=== PATIENT | female | born 1990 | race Caucasian/White ===

== ENCOUNTER 2016-11-14 14:20 | Emergency (ER) | payer MEDICAID, OTHER ==
[~2016-11-14] VITALS: Ht 175.3 cm; Wt 98.0 kg
[2016-11-14 14:22] VITALS: BP 121/82; PULSE 107; RESP 15; TEMP 98.3; O2SAT 97
[2016-11-14] MEDS ORDERED: sleeping med (15:15)
[2016-11-14] MEDS ORDERED: SERT-132 PO (15:15)
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
[2016-11-14] MEDS ORDERED: ORPHENADRINE INJ 60 MG/2 ML AMP IM ONE (16:30)
[2016-11-14] MEDS ORDERED: KETOROLAC TROMETHAMINE 60 MG/2 ML (IM) VIAL IM ONE (16:30)
[2016-11-14] MEDS ORDERED: TETANUS/DIPHTHERIA TOXOID ADULT 0.5 ML VIAL IM ONE (16:30)
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
[2016-11-14] MEDS ORDERED: ROBA750T PO (17:39)
[2016-11-14] MEDS ORDERED: DICL50TA PO (17:39)
== END 2016-11-14 18:15 | disposition home or self-care (01) ==
LOC: NEPB 14:20
DX: S16.1XXA Strain of muscle, fascia and tendon at neck level, initial encounter (principal); M79.601 Pain in right arm; M54.5 Low back pain; M79.672 Pain in left foot; M79.642 Pain in left hand; T14.8 Other injury of unspecified body region; F17.210 Nicotine dependence, cigarettes, uncomplicated; V49.49XA Driver injured in collision with other motor vehicles in traffic accident, initial encounter; Y92.008 Other place in unspecified non-institutional (private) residence as the place of occurrence of the external cause; Z23 Encounter for immunization
CPT/HCPCS: 72125; 73060; 73130; 73630; 90471; 90714; 96372; 99284; J1885; J2360; L0150

== ENCOUNTER 2017-01-24 13:35 | Emergency (ER) | payer MEDICAID, OTHER ==
[~2017-01-24] VITALS: Ht 175.3 cm; Wt 98.1 kg
[~2017-01-24 13:35] MED LIST: DICL50TA PO; ROBA750T PO; SERT-132 PO; sleeping med
[2017-01-24 13:42] VITALS: BP 118/82; PULSE 93; RESP 16; TEMP 97.6; O2SAT 98
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
[2017-01-24] MEDS ORDERED: NAPR500 PO (14:06)
== END 2017-01-24 14:15 | disposition home or self-care (01) ==
LOC: PHEFT 13:35
DX: S86.912A Strain of unspecified muscle(s) and tendon(s) at lower leg level, left leg, initial encounter (principal); Z72.0 Tobacco use; Z86.59 Personal history of other mental and behavioral disorders; X58.XXXA Exposure to other specified factors, initial encounter; Y93.55 Activity, bike riding
CPT/HCPCS: 99283; L1830

== ENCOUNTER 2017-06-01 06:27 | Emergency (ER) | payer OTHER ==
[~2017-06-01] VITALS: Ht 172.7 cm; Wt 97.0 kg
[~2017-06-01 06:27] MED LIST changes: -DICL50TA PO; +NAPR500 PO; -ROBA750T PO
[2017-06-01 06:30] VITALS: BP 127/79; PULSE 102; RESP 16; TEMP 99.1; O2SAT 100
[2017-06-01] MEDS ORDERED: TRAZ50TA12 PO (07:06)
[2017-06-01] MEDS ORDERED: ACETAMINOPHEN 325 MG TAB PO ONE (07:15)
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
[2017-06-01] MEDS ORDERED: NEOMYCIN/POLYMYXIN/BACITRACIN OINT 15 GM TUBE TOPICAL ONE (08:00)
[2017-06-01 08:06] VITALS: BP 148/86
== END 2017-06-01 08:23 | disposition home or self-care (01) ==
LOC: NEPE 06:27
DX: S01.01XA Laceration without foreign body of scalp, initial encounter (principal); F12.10 Cannabis abuse, uncomplicated; W06.XXXA Fall from bed, initial encounter
CPT/HCPCS: 12001; 70450; 84703

== ENCOUNTER 2017-06-08 12:58 | Emergency (ER) | payer OTHER ==
[~2017-06-08 12:58] MED LIST changes: -NAPR500 PO; +TRAZ50TA12 PO; -sleeping med
[2017-06-08 12:59] VITALS: BP 135/85; PULSE 89; RESP 12; TEMP 97.9; O2SAT 100
--- NOTE | 2017-06-08 13:35 | PD ---
HPI Chief Complaint: Wound/Suture/Staple Re-Check Time Seen by Provider: 13:32 Travel History International Travel<30 days: No Contact w/Intl Traveler<30days: No Traveled to known affect area: No History of Present Illness HPI 26-year-old female presents to the emergency department for staple removal to the scalp. Patient had 3 radha placed to the scalp 7 days ago after she fell and suffered a laceration. She denies any complaints. She states she is doing well. Patient denies any fevers. No chills. No drainage. No other complaints. PFSH Past Medical History Anxiety: Yes Diminished Hearing: No Immunizations Current: Yes : 1 Para: 1 Miscarriage: 0 : 0 Social History Alcohol Use: Yes (OCC) Tobacco Use: Yes (4 cigarettes/day) Substance Use: Yes (WEED) Allergies-Medications (Allergen,Severity, Reaction): Coded Allergies: No Known Allergies (Verified , 01/24/17) Per pt. Reported Meds & Prescriptions Reported Meds & Active Scripts Active Reported Trazodone (Trazodone HCl) 50 Mg Tab 50 Mg PO HS Sertraline (Sertraline HCl) 50 Mg Tab 50 Mg PO DAILY Review of Systems Except as stated in HPI: all other systems reviewed are Neg Physical Exam Narrative GENERAL: Well-nourished, well-developed female patient, afebrile. SKIN: Focused skin assessment warm/dry. Patient has healing laceration to the right scalp. [address] No drainage. No erythema. No evidence of infection. HEAD: Normocephalic. EYES: No scleral icterus. No injection or drainage. NECK: Supple, trachea midline. No JVD or lymphadenopathy. RESPIRATORY:No accessory muscle use. GASTROINTESTINAL: Abdomen soft, non-tender, nondistended. MUSCULOSKELETAL: No cyanosis, or edema. Data Data Last Documented VS Vital Signs Date Time Temp Pulse Resp B/P (MAP) Pulse Ox O2 Delivery O2 Flow Rate FiO2 06/08/17 12:59 97.9 89 12 135/85 (102) 100 MDM Medical Decision Making Medical Screen Exam Complete: Yes Emergency Medical Condition: Yes Medical Record Reviewed: Yes Differential Diagnosis Staple removal versus cellulitis versus medical clearance Narrative Course 26-year-old female presents to the emergency department for staple removal. Patient had 3 radha placed one week ago. Lacerations is healing well. No evidence of complications or cellulitis. Radha are removed without difficulty. Diagnosis Primary Impression: Removal of radha Referrals: Primary Care Physician as needed Patient Instructions: General Instructions, Stitches Removal (ED) Additional Instructions: Follow-up with your primary care physician as needed. Return to the emergency department for any emergent conditions. Med/Other Pt SpecificInfo: No Change to Meds Disposition: 01 DISCHARGE HOME Condition: Stable Ban Sánchez Jun 08, 2017 13:35
== END 2017-06-08 13:40 | disposition home or self-care (01) ==
LOC: NEPK 12:58
DX: Z48.02 Encounter for removal of sutures (principal)
CPT/HCPCS: 99281

== ENCOUNTER 2017-06-15 16:54 | Emergency (ER) | payer OTHER ==
[~2017-06-15] VITALS: Ht 172.7 cm; Wt 10.0 kg
[2017-06-15 16:55] VITALS: BP 117/79; PULSE 89; RESP 13; TEMP 98.8; O2SAT 98
--- NOTE | 2017-06-15 17:38 | RADRPT ---
EXAM DATE/TIME: 06/15/2017 17:29 [facility] COMPARISON: No previous studies available for comparison. INDICATIONS : Left lateral foot pain, fell MEDICAL HISTORY : None. SURGICAL HISTORY : None. ENCOUNTER: Initial ACUITY: 1 day PAIN SCORE: 6/10 LOCATION: Left Foot FINDINGS: There is a minimally displaced transverse proximal left fifth metatarsal fracture. The foot appears o therwise intact. No articular abnormalities are identified. Incidental os tibiale externum. CONCLUSION: Minimally displaced proximal left fifth metatarsal fracture Juan Jesus MD on June 15, 2017 at 17:36 Board Certified Radiologist. This report was verified electronically.
[2017-06-15] MEDS ORDERED: IBUP800T23 PO (18:39)
--- NOTE | 2017-06-15 18:39 | PD ---
HPI Chief Complaint: Injury Time Seen by Provider: 18:33 Travel History International Travel<30 days: No Contact w/Intl Traveler<30days: No Traveled to known affect area: No History of Present Illness HPI 26 year-old female presents to emergency department for evaluation left foot pain. Patient states that she stepped off a curb and twisted her foot. She felt a pop and pain is similar to and she broke her right foot in the past. Pain is a constant, aching, throbbing, 8 out of 10. States it is exacerbated with flexion and extension of the toes. Denies any alteration in sensation. No other symptoms to report. PFSH Past Medical History Anxiety: Yes Depression: Yes Diminished Hearing: No Immunizations Current: Yes ?: Not LMP: 06/13/17 : 1 Para: 1 Miscarriage: 0 : 0 Past Surgical History Surgical History: No Previous Surgery Social History Alcohol Use: Yes (OCC) Tobacco Use: Yes (1/2 ppd) Substance Use: Yes (marijuana occ.) Allergies-Medications (Allergen,Severity, Reaction): Coded Allergies: No Known Allergies (Verified , 06/15/17) Per pt. Reported Meds & Prescriptions Reported Meds & Active Scripts Active Ibuprofen 800 Mg Tab 800 Mg PO Q8H PRN Reported Trazodone (Trazodone HCl) 50 Mg Tab 50 Mg PO HS Sertraline (Sertraline HCl) 50 Mg Tab 50 Mg PO DAILY Review of Systems Except as stated in HPI: all other systems reviewed are Neg Physical Exam Narrative GENERAL: Well-nourished, well-developed female patient, in no acute distress. SKIN: Focused skin assessment warm/dry. HEAD: Normocephalic. EYES: No scleral icterus. No injection or drainage. NECK: Supple, trachea midline. No JVD or lymphadenopathy. CARDIOVASCULAR: Regular rate and rhythm without murmurs, gallops, or rubs. RESPIRATORY: Breath sounds equal bilaterally. No accessory muscle use. GASTROINTESTINAL: Abdomen soft, non-tender, nondistended. MUSCULOSKELETAL: No cyanosis. Mild edema of the dorsal lateral aspect of the left foot. Tenderness elicited to palpation along the lateral foot. Distal pulses are palpable. Cap refill within normal limits. Patient can flex and extend the toes of the affected foot. BACK: Nontender without obvious deformity. No CVA tenderness. Data Data Last Documented VS Vital Signs Date Time Temp Pulse Resp B/P (MAP) Pulse Ox O2 Delivery O2 Flow Rate FiO2 06/15/17 19:27 72 20 112/82 (92) 99 06/15/17 18:27 Room Air 06/15/17 16:55 98.8 Orders Orders Foot, Complete (Dze2stg) (06/15/17 ) Ibuprofen (Motrin) (06/15/17 18:45) Splint Or Brace Apply/Monitor (06/15/17 18:37) Fiberglass Short Leg Splint Ad (06/15/17 ) MDM Medical Decision Making Medical Screen Exam Complete: Yes Emergency Medical Condition: Yes Medical Record Reviewed: Yes Differential Diagnosis Fracture versus contusion versus sprain versus dislocation Narrative Course 36 year-old female presents to emergency department for evaluation left foot pain. Patient is given ibuprofen for the pain. X-ray imaging shows Last Impressions Foot X-Ray 06/15/17 0000 Signed Impressions: Service Date/Time: Thursday, June 15, 2017 17:29 - CONCLUSION: Minimally displaced proximal left fifth metatarsal fracture Juan Jesus MD Patient is placed in a posterior short leg splint and provided crutches. She has instruction on care and encouraged follow-up with podiatry. She agrees to return immediately with any acute worsening of symptoms. Diagnosis Primary Impression: Nondisplaced fracture of fifth left metatarsal bone Qualified Codes: S92.355A - Nondisplaced fracture of fifth metatarsal bone, left foot, initial encounter for closed fracture Referrals: Brandon Rosado DPM It Consultant Patient Instructions: Foot Fracture in Adults (ED), General Instructions Additional Instructions: Ice and elevate to reduce pain and swelling Do not remove your splints Do not get it wet Contact podiatry and follow-up in the next 3-5 days Nonweightbearing on the affected extremity Return immediately to the emergency department with any acute worsening of symptoms Med/Other Pt SpecificInfo: Prescription(s) given Scripts Ibuprofen (Ibuprofen) 800 Mg Tab 800 MG PO Q8H Y for Pain/Inflammation, #30 TAB 0 Refills Prov: Hedy Gresham 06/15/17 Disposition: 01 DISCHARGE HOME Condition: Stable Hedy Gresham Jun 15, 2017 18:39
[2017-06-15] MEDS ORDERED: IBUPROFEN 800 MG TAB PO ONE (18:45)
[2017-06-15 19:27] VITALS: BP 112/82
== END 2017-06-15 19:44 | disposition home or self-care (01) ==
LOC: NEPD 16:54
DX: S92.355A Nondisplaced fracture of fifth metatarsal bone, left foot, initial encounter for closed fracture (principal); X50.1XXA Overexertion from prolonged static or awkward postures, initial encounter; Y93.89 Activity, other specified
CPT/HCPCS: 29515; 73630; 99283; E0113